=== PATIENT | female | born 1955 | race Caucasian/White ===

== ENCOUNTER 2018-03-29 10:33 | Day surgery (SDC) | payer BC ==
[~2018-03-29] VITALS: Ht 162.6 cm; Wt 73.9 kg
[~2018-03-29 10:33] MED LIST: CYMBALTA 30MG30 MG PO; DESYREL 50MG50 MG PO; MS CONTIN 115 MG/TAB PO; ZESTRIL 5MG5 MG PO
[2018-03-29] MEDS ORDERED: PRILOSEC 20MG20 MG PO (11:01)
[2018-03-29] MEDS ORDERED: ALDACTONE50 MG PO (11:02)
[2018-03-29] MEDS ORDERED: CEPHALEXIN500 M1 PO (11:03)
[2018-03-29] MEDS ORDERED: NORVASC 5MG5 MG/TAB PO (11:03)
[2018-03-29] MEDS ORDERED: MULTI VITAMINS1 TAB PO (11:04)
[2018-03-29] MEDS ORDERED: VITAMINC1000TA PO (11:04)
[2018-03-29] MEDS ORDERED: ATACAND 16M16 MG/TAB PO (11:05)
[2018-03-29] MEDS ORDERED: B COMPLEX #11 TAB PO (11:05)
[2018-03-29 11:29] VITALS: BP 107/70; PULSE 57; TEMP 97.5
--- NOTE | 2018-03-29 13:40 | NUR ---
Discharge instructions reviewed. Pt voices understanding. IV site discontinued with all parts intact. Pt up to dress. Call light within reach.
--- NOTE | 2018-03-29 13:50 | NUR ---
Pt escorted to private car via wheel chair. Pt accompanied home by .
[2018-03-29 14:30] VITALS: BP 103/44; PULSE 56
== END 2018-03-29 13:50 | disposition home or self-care (01) ==
LOC: SDCO 10:33
DX: K60.1 Chronic anal fissure (principal); I10 Essential (primary) hypertension; Z79.899 Other long term (current) drug therapy; K21.9 Gastro-esophageal reflux disease without esophagitis; Z82.49 Family history of ischemic heart disease and other diseases of the circulatory system
CPT/HCPCS: J0585; J2250; J2405; J3010; J7030

== ENCOUNTER 2018-05-10 09:47 | Day surgery (SDC) | payer BC ==
[~2018-05-10] VITALS: Ht 162.6 cm; Wt 72.8 kg
[~2018-05-10 09:47] MED LIST changes: +ALDACTONE50 MG PO; +ATACAND 16M16 MG/TAB PO; +B COMPLEX #11 TAB PO; +CEPHALEXIN500 M1 PO; +MULTI VITAMINS1 TAB PO; +NORVASC 5MG5 MG/TAB PO; +PRILOSEC 20MG20 MG PO; +VITAMINC1000TA PO
[2018-05-10 10:50] VITALS: BP 135/80; PULSE 57; TEMP 98.3
[2018-05-10] MEDS ORDERED: AMBIEN 10MG10 MG PO (11:08)
[2018-05-10] MEDS ORDERED: STOOL SOFTENER100 M2 PO (11:10)
[2018-05-10] MEDS ORDERED: RETIN-A CR0.05 20GM TP (11:12)
[2018-05-10] MEDS ORDERED: PROCARDIA10 MG TOP (11:19)
[2018-05-10] MEDS ORDERED: COLACE 100100 MG/CAP PO (14:28)
[2018-05-10] MEDS ORDERED: MOTRIN 600600 MG/TAB PO (14:29)
[2018-05-10] MEDS ORDERED: DILAUDID 2MG TAB2 MG PO (14:30)
[2018-05-10 14:40] VITALS: BP 106/78; PULSE 81; TEMP 98.3
--- NOTE | 2018-05-10 14:40 | NUR ---
TO RM 8 PER CART FROM PACU. ALERT ORIENTED X3, TALKING TO STAFF AND . RECEIVED WATER. UPON RETURNING TO PATIENT ASKING TO GO HOME. OFFERED SITZ BATH AND PATIENT DECLINED. PATIENT STATED SHE WOULD RATHER USE THE BATHTUB AT HOME. DENIES PAIN OR DISCOMFORT DENIES N/V STRETCH PANTIES OVER 4X4 DRESSINGS AND NO ACTIVE DRAINAGE NOTED
[2018-05-10 14:55] VITALS: BP 115/45; PULSE 77
--- NOTE | 2018-05-10 14:55 | NUR ---
RECEIVED CRACKER AND DRINKING WATER RECEIVED 2ND CUP OF WATER.
--- NOTE | 2018-05-10 15:00 | NUR ---
UP AMBULATED TO BATHROOM WITH ASSIST AND TOLERATED WELL.
--- NOTE | 2018-05-10 15:20 | NUR ---
RECEIVED DISCHARGE INSTRUCTIONS AND VERBALIZED UNDERSTANDING. DISCONTINUED IV AND INT- CATHETER INTACT COVERED IV SITE WITH COTTON BALL AND COBAN. AGAIN OFFERED SITZ BATH AND PATIENT REFUSED. FOLLOW UP APPOINTMENT 05/24/18 AT 0915
--- NOTE | 2018-05-10 15:35 | NUR ---
DISCHARGED PER WC BY NURSING STAFF TO PRIVATE CAR IN CARE OF -[facility].
== END 2018-05-10 15:43 | disposition home or self-care (01) ==
LOC: SDCO 09:47
DX: K60.1 Chronic anal fissure (principal); I10 Essential (primary) hypertension; K21.9 Gastro-esophageal reflux disease without esophagitis; Z79.899 Other long term (current) drug therapy; Z82.49 Family history of ischemic heart disease and other diseases of the circulatory system; Z83.3 Family history of diabetes mellitus
CPT/HCPCS: J0690; J1100; J1885; J2405; J2704; J3010; J7120

== ENCOUNTER 2018-07-04 08:45 | Outpatient (RCR) | payer BC ==
[~2018-07-04 08:45] MED LIST changes: +AMBIEN 10MG10 MG PO; +COLACE 100100 MG/CAP PO; +DILAUDID 2MG TAB2 MG PO; +MOTRIN 600600 MG/TAB PO; +PROCARDIA10 MG TOP; +RETIN-A CR0.05 20GM TP; +STOOL SOFTENER100 M2 PO
== END 2018-08-29 15:08 | disposition home or self-care (01) ==
LOC: MKS.ESL.PT 08:45
DX: C21.1 Malignant neoplasm of anal canal (principal); I10 Essential (primary) hypertension; I97.89 Other postprocedural complications and disorders of the circulatory system, not elsewhere classified; I89.0 Lymphedema, not elsewhere classified; Z79.899 Other long term (current) drug therapy

== ENCOUNTER → 2018-10-17 | Outpatient (CLI) | payer BC | LOC: COL.VAS 11:01 | DX: I35.1 Nonrheumatic aortic (valve) insufficiency (principal); R60.0 Localized edema ==

== ENCOUNTER 2018-12-11 10:15 | Outpatient (RCR) | payer BC | END 2019-01-30 | disposition home or self-care (01) | LOC: MKS.ESL.PT | DX: C21.1 Malignant neoplasm of anal canal (principal); I10 Essential (primary) hypertension ==

== ENCOUNTER 2019-04-25 08:00 | Outpatient (RCR) | payer BC | END 2019-07-24 | disposition home or self-care (01) | LOC: MKS.ESL.PT | DX: C21.0 Malignant neoplasm of anus, unspecified (principal) ==

== ENCOUNTER → 2022-10-24 | Outpatient (CLI) | payer MEDICARE, BC | LOC: MC.RAD 09:32 | DX: N63.15 Unspecified lump in the right breast, overlapping quadrants (principal) ==